=== PATIENT | female | born 1965 | race Caucasian/White ===

== ENCOUNTER 2024-08-02 23:15 | Emergency (ER) | payer OTHER ==
[~2024-08-02] VITALS: Ht 162.6 cm; Wt 84.8 kg
[2024-08-02 23:31] VITALS: PULSE 63; RESP 18; TEMP 98.4
[2024-08-03] MEDS ORDERED: NITROFURANTOIN100 MG PO (01:30)
[2024-08-03] MEDS: NITROFURANTOIN 50 MG CAP PO ONE (01:45)
[2024-08-03 01:54] VITALS: BP 163/73; PULSE 63; RESP 18; TEMP 98.6; O2SAT 98
== END 2024-08-03 01:54 | disposition home or self-care (01) ==
LOC: FSED 23:29
DX: R31.0 Gross hematuria (principal); N39.0 Urinary tract infection, site not specified; M54.50 Low back pain, unspecified; I10 Essential (primary) hypertension; E11.65 Type 2 diabetes mellitus with hyperglycemia; E03.9 Hypothyroidism, unspecified
CPT/HCPCS: 74176; 80053; 81003; 85025; 87086; 87186; 99283